=== PATIENT | female | born 1950 | race Caucasian/White ===

== ENCOUNTER → 2016-12-05 | Outpatient (CLI) | payer OTHER, MEDICARE | LOC: CIMAGING 07:46 | PROVIDERS: ATTEND Family Medicine | DX: Z12.31 Encounter for screening mammogram for malignant neoplasm of breast (principal); Z80.3 Family history of malignant neoplasm of breast | CPT/HCPCS: G0202 ==

== ENCOUNTER → 2017-01-07 | Outpatient (CLI) | payer OTHER, MEDICARE ==
[~2017-01-07] MED LIST: GADOBUTROL 10 ML VIAL IVP ONE
== END ==
LOC: FIMAGING 15:50
PROVIDERS: ATTEND Orthopaedic Surgery Hand Surgery
DX: D17.79 Benign lipomatous neoplasm of other sites (principal)
CPT/HCPCS: 73223; A9585

== ENCOUNTER → 2017-12-07 | Outpatient (CLI) | payer OTHER, MEDICARE | LOC: CIMAGING 07:48 | PROVIDERS: ATTEND Family Medicine | DX: Z12.31 Encounter for screening mammogram for malignant neoplasm of breast (principal); Z80.3 Family history of malignant neoplasm of breast ==

== ENCOUNTER → 2017-12-31 | Outpatient (CLI) | payer OTHER, MEDICARE | LOC: BRMIMAGING 08:32 | PROVIDERS: ATTEND Family Medicine | DX: Z13.820 Encounter for screening for osteoporosis (principal); M85.89 Other specified disorders of bone density and structure, multiple sites ==